=== PATIENT | male | born 1980 | race Caucasian/White ===

== ENCOUNTER 2023-07-14 04:20 | Day surgery (SDC) | payer OTHER ==
[2023-07-07 10:19] VITALS: BMI 31.8
[2023-07-14] MEDS ORDERED: KETOROLAC TROMETHAMINE 30 MG/1 ML VIAL ONE (12:25)
[2023-07-14] MEDS ORDERED: SODIUM CHLORIDE 0.9% P/F 10 ML VIAL IJ ONE (12:25)
[2023-07-14] MEDS ORDERED: ONDANSETRON 4 MG/2 ML VIAL ONE ×2 (12:25→18:51)
[2023-07-14] MEDS ORDERED: DEXAMETHASONE SOD PHOSPHATE 4 MG/1 ML VIAL ONE (12:25)
[2023-07-14] MEDS ORDERED: LIDOCAINE HCL/PF 2% SDV 5ML VIAL ONE (12:25)
[2023-07-14] MEDS ORDERED: ceFAZolin SODIUM 1 GM VIAL ONE (12:25)
[2023-07-14] MEDS ORDERED: METOCLOPRAMIDE HCL INJECTION 10 MG/2 ML VIAL ONE (12:25)
[2023-07-14] MEDS ORDERED: FENTANYL CITRATE/PF 50 MCG/ML VIAL ONE ×3 (12:26→15:33)
[2023-07-14] MEDS ORDERED: MIDAZOLAM HCL 2 MG/2 ML SINGLE DOSE VIAL ONE (12:26)
[2023-07-14] MEDS ORDERED: ACETAMINOPHEN INJECTION 100 ML IVPB ONE (12:28)
[2023-07-14] MEDS ORDERED: BACITRACIN ZINC 15 GM TUBE TOPICAL OINTMENT ONE (13:04)
[2023-07-14] MEDS ORDERED: PROPOFOL 20 ML ONE (13:59)
[2023-07-14] MEDS: ceFAZolin SODIUM 1 GM VIAL IVPB ONE (14:00)
[2023-07-14] MEDS ORDERED: HYDROmorphone HCl 2 MG/ML VIAL ONE (14:05)
[2023-07-14] MEDS: BUPIVACAINE HCL/PF 0.25% (2.5MG/ML) 10 ML VIAL IJ ONE (14:27)
[2023-07-14] MEDS ORDERED: LACTATED RINGERS SOLUTION 1,000 ML IV SCH (14:30)
[2023-07-14] MEDS: BACITRACIN 0.9 GM PACKET TP ONE (14:34)
[2023-07-14] MEDS: oxyCODONE HCL 5 MG TABLET PO PRN (16:46)
[2023-07-14] MEDS ORDERED: oxyCODONE HCL 5 MG TABLET ONE (16:47)
[2023-07-14 16:55] VITALS: TEMP 97.2
[2023-07-14] MEDS: ONDANSETRON 4 MG/2 ML VIAL IVPUSH ONE (18:45)
[2023-07-14 19:33] VITALS: BP 122/71; PULSE 74; RESP 20
== END 2023-07-14 19:29 | disposition home or self-care (01) ==
LOC: JASU-SURG 04:20
PROVIDERS: ATTEND Urology
PROC: 0VBG0ZZ Excision of Left Spermatic Cord, Open Approach (ICD-10-PCS; principal; 2023-07-14 13:30)
DX: N43.2 Other hydrocele (principal)
CPT/HCPCS: 88302-TC; 88304-TC; 88311-TC; 94760; J0131